=== PATIENT | female | born 1965 | race Two or more races ===

== ENCOUNTER 2021-05-12 08:59 | Inpatient (IN) | payer MEDICAID ==
[~2021-05-12] VITALS: Ht 167.6 cm; Wt 68.5 kg
[2021-05-12] MEDS ORDERED: MORPHINE SULFATE 4 MG/ML CPJ (NOT FOR IM USE) IV STA (09:08)
[2021-05-12 09:43] LABS: HEMATOCRIT. 37.7 % (36.0-48.0); HEMOGLOBIN. 12.2 g/dL (12.0-16.0); LYMPHOCYTES % 33.8 % (20.0-50.0); MEAN CORPUSCULAR HEMOGLOBIN 23.9 pg (28.0-32.0); MEAN CORPUSCULAR VOLUME 73.8 fL (81.0-99.0); MEAN PLATELET VOLUME 9.6 fl (7.4-10.4); MONOCYTES % 8.9 % (2.0-8.0); NEUTROPHILS % 51.3 % (40.0-76.0); PLATELET 132 x1000/uL (130-400); RED BLOOD CELL COUNT 5.11 mill/uL (4.2-5.4); RED CELL DISTRIBUTION WIDTH 26.8 % (11.6-14.6)
[2021-05-12 09:49] LABS: CHLORIDE 106 mEq/L (98-107)
[2021-05-12] MEDS ORDERED: HYDRALAZINE 20MG/ML VIAL IV ONE (10:15)
[2021-05-12 11:01] LABS: PLATELET ESTIMATE NORMAL
[2021-05-12 13:29] VITALS: BP 145/83
[2021-05-12 13:30] VITALS: BP 145/83
[2021-05-12] MEDS ORDERED: FURO20TA4 MT (13:49)
[2021-05-12] MEDS ORDERED: ASPI-1497 PO (13:50)
[2021-05-12] MEDS ORDERED: LOSA100T32 MT (13:50)
[2021-05-12] MEDS ORDERED: CARV25TA47 MT (13:50)
[2021-05-12] MEDS ORDERED: NIFE20CA PO (13:51)
[2021-05-12] MEDS ORDERED: CLON0.1T PO (13:52)
[2021-05-12] MEDS ORDERED: ACET650T37 PO (13:53)
[2021-05-12] MEDS ORDERED: IPRATROPIUM/ALBUTEROL 0.5-3(2.5)MG/3ML NEB HHN PRN (15:00)
[2021-05-12] MEDS ORDERED: LORAZEPAM 0.5MG TABLET PO PRN (15:00)
[2021-05-12] MEDS ORDERED: MORPHINE SULFATE 2 MG/ML CPJ (NOT FOR IM USE) IV PRN (15:00)
[2021-05-12] MEDS ORDERED: ACETAMINOPHEN 325MG TABLET PO PRN ×2 (15:00)
[2021-05-12] MEDS ORDERED: NITROGLYCERIN 0.4MG TABLET SL SL PRN (15:00)
[2021-05-12] MEDS ORDERED: ONDANSETRON HCL 4MG/2ML INJ IV PRN (15:00)
[2021-05-12] MEDS ORDERED: DOCUSATE SODIUM 100MG CAPSULE PO PRN (15:00)
[2021-05-12] MEDS ORDERED: HYDROCODONE/ACETAMINOPHEN 5/325MG TABLET PO PRN (15:00)
[2021-05-12 16:00] VITALS: BP 131/84
[2021-05-12] MEDS: CLONIDINE 0.1MG TABLET PO SCH (16:28)
[2021-05-12] MEDS: NIFEDIPINE XL 60MG TAB PO SCH (16:28)
[2021-05-12] MEDS: LORATADINE 10MG TABLET PO SCH (16:28)
[2021-05-12] MEDS: LOSARTAN POTASSIUM 100 MG TABLET PO SCH (16:29)
[2021-05-12] MEDS: ENOXAPARIN 40MG/0.4ML SYR SUBCUT SCH (16:29)
[2021-05-12 17:55] LABS: LDL CHOLESTEROL 121 mg/dL (5-100)
[2021-05-12 17:57] LABS: CREATINE KINASE 54 IU/L (26-192); HDL CHOLESTEROL 61 mg/dL (40-59)
[2021-05-12 18:00] LABS: CREATINE KINASE MB FRACTION 1.1 ng/mL (0.5-3.6)
[2021-05-12 20:00] VITALS: BP 139/74
[2021-05-12] MEDS: CARVEDILOL 12.5MG TABLET PO SCH (22:07)
[2021-05-13] VITALS: BP 128/70
[2021-05-13 00:07] LABS: *AMPHETAMINES SCREEN URINE NEGATIVE (NEGATIVE); *BARBITURATES SCREEN URINE NEGATIVE (NEGATIVE)
[2021-05-13 00:08] LABS: *BENZODIAZEPINES SCREEN URINE NEGATIVE (NEGATIVE); *COCAINE SCREEN URINE NEGATIVE (NEGATIVE); CANNABINOID URINE SCREEN NEGATIVE (NEGATIVE); METHADONE URINE SCREEN NEGATIVE (NEGATIVE); OPIATES URINE SCREEN PRESUMTIVE POSITIVE (NEGATIVE); PHENCYCLIDINE URINE SCREEN NEGATIVE (NEGATIVE)
[2021-05-13 04:00] VITALS: BP 109/60
[2021-05-13 06:35] LABS: BASOPHILS % 1.4 % (0.0-2.0); HEMATOCRIT. 35.7 % (36.0-48.0); HEMOGLOBIN. 11.3 g/dL (12.0-16.0); LYMPHOCYTES % 38.9 % (20.0-50.0); MEAN CORPUSCULAR HEMOGLOBIN 23.6 pg (28.0-32.0); MEAN CORPUSCULAR VOLUME 74.6 fL (81.0-99.0); MONOCYTES % 8.9 % (2.0-8.0); NEUTROPHILS % 45.8 % (40.0-76.0); RED BLOOD CELL COUNT 4.79 mill/uL (4.2-5.4); RED CELL DISTRIBUTION WIDTH 26.3 % (11.6-14.6)
[2021-05-13 06:57] LABS: CHLORIDE 105 mEq/L (98-107)
[2021-05-13 08:00] VITALS: BP 116/74
[2021-05-13 08:46] LABS: PLATELET 124 x1000/uL (130-400)
[2021-05-13] MEDS: CARVEDILOL 12.5MG TABLET PO SCH ×2 (09:00→21:04)
[2021-05-13] MEDS: NIFEDIPINE XL 60MG TAB PO SCH (09:00)
[2021-05-13] MEDS: FUROSEMIDE 20MG TABLET PO SCH (09:00)
[2021-05-13] MEDS: LORATADINE 10MG TABLET PO SCH (09:00)
[2021-05-13] MEDS: CLONIDINE 0.1MG TABLET PO SCH ×3 (09:00→16:22)
[2021-05-13] MEDS: ASPIRIN 81MG EC TABLET PO SCH (09:00)
[2021-05-13] MEDS: LOSARTAN POTASSIUM 100 MG TABLET PO SCH (09:00)
[2021-05-13] MEDS ORDERED: LIDOCAINE HCL 1% 20ML VIAL (Pyxis) INJ ONE (11:11)
[2021-05-13] MEDS ORDERED: IOHEXOL-300 100 ML BOTTLE ONE (11:15)
[2021-05-13 11:30] VITALS: BP 150/79
[2021-05-13] MEDS ORDERED: VERAPAMIL HCL 2.5 MG/1 ML 2ML VIAL IV ONE (11:37)
[2021-05-13] MEDS ORDERED: MIDAZOLAM HCL 2 MG/2 ML VIAL ONE ×2 (11:37→12:08)
[2021-05-13] MEDS ORDERED: FENTANYL CITRATE/PF 50MCG/ML 2ML VIAL ONE ×2 (11:37→12:08)
[2021-05-13] MEDS ORDERED: FENTANYL CITRATE/PF 50MCG/ML 5ML VIAL ONE (12:33)
[2021-05-13] MEDS ORDERED: MIDAZOLAM HCL 5 MG/5 ML VIAL ONE (12:33)
[2021-05-13] MEDS ORDERED: ATROPINE SULFATE 1MG/10ML SYR IV PRN (13:15)
[2021-05-13] MEDS ORDERED: ACETAMINOPHEN 325MG TABLET PO PRN (13:15)
[2021-05-13] MEDS: CLONIDINE 0.1MG TABLET PO PRN (15:03)
[2021-05-13] MEDS: ENOXAPARIN 40MG/0.4ML SYR SUBCUT SCH (15:31)
[2021-05-13 16:00] VITALS: BP 144/68
[2021-05-13 20:00] VITALS: BP 146/83
[2021-05-14] VITALS (7 sets, daily range): BP systolic 122–207; BP diastolic 65–114
[2021-05-14 06:44] LABS: BASOPHILS % 1.4 % (0.0-2.0); EOSINOPHILS % 3.6 % (0.0-5.0); HEMOGLOBIN. 10.5 g/dL (12.0-16.0); LYMPHOCYTES % 27.2 % (20.0-50.0); MEAN CORPUSCULAR HEMOGLOBIN 24.1 pg (28.0-32.0); MEAN CORPUSCULAR VOLUME 73.6 fL (81.0-99.0); MEAN PLATELET VOLUME 9.8 fl (7.4-10.4); MONOCYTES % 8.2 % (2.0-8.0); NEUTROPHILS % 59.6 % (40.0-76.0); PLATELET 98 x1000/uL (130-400); RED BLOOD CELL COUNT 4.34 mill/uL (4.2-5.4); RED CELL DISTRIBUTION WIDTH 26.3 % (11.6-14.6)
[2021-05-14 07:16] LABS: CHLORIDE 107 mEq/L (98-107)
[2021-05-14] MEDS: CLONIDINE 0.1MG TABLET PO PRN (07:29)
[2021-05-14] MEDS: FUROSEMIDE 20MG TABLET PO SCH (08:19)
[2021-05-14] MEDS: CLONIDINE 0.1MG TABLET PO SCH ×2 (08:19→12:33)
[2021-05-14] MEDS: LORATADINE 10MG TABLET PO SCH (08:19)
[2021-05-14] MEDS: NIFEDIPINE XL 60MG TAB PO SCH (08:22)
[2021-05-14] MEDS: CARVEDILOL 12.5MG TABLET PO SCH (08:22)
[2021-05-14] MEDS: ASPIRIN 81MG EC TABLET PO SCH (08:22)
[2021-05-14] MEDS: LOSARTAN POTASSIUM 100 MG TABLET PO SCH (08:22)
[2021-05-14] MEDS ORDERED: ISOSORBIDE MONONITRATE 30MG TABLET SR 24HR PO SCH (09:00)
[2021-05-14] MEDS ORDERED: ISOS30TA91 PO (10:45)
[2021-05-14] MEDS ORDERED: NITR0.4T49 SL (10:51)
[2021-05-14] MEDS ORDERED: CARVEDILOL 12.5MG TABLET PO SCH (21:00)
== END 2021-05-14 13:20 | disposition home or self-care (01) | DRG 191 ==
LOC: ER 08:59 → 5WST 10:04 → ENRESERV 12:49
PROVIDERS: ADMIT Internal Medicine; ATTEND Internal Medicine
PROC: 4A023N7 Measurement of Cardiac Sampling and Pressure, Left Heart, Percutaneous Approach (ICD-10-PCS; principal; 2021-05-13)
PROC: B211YZZ Fluoroscopy of Multiple Coronary Arteries using Other Contrast (ICD-10-PCS; 2021-05-13)
PROC: B31HYZZ Fluoroscopy of Right Upper Extremity Arteries using Other Contrast (ICD-10-PCS; 2021-05-13)
PROC: B41FYZZ Fluoroscopy of Right Lower Extremity Arteries using Other Contrast (ICD-10-PCS; 2021-05-13)
DX: I25.119 Atherosclerotic heart disease of native coronary artery with unspecified angina pectoris (principal); I50.33 Acute on chronic diastolic (congestive) heart failure; I07.1 Rheumatic tricuspid insufficiency; E87.1 Hypo-osmolality and hyponatremia; M94.0 Chondrocostal junction syndrome [Tietze]; I11.0 Hypertensive heart disease with heart failure; Z20.822 Contact with and (suspected) exposure to COVID-19; I77.1 Stricture of artery; I16.1 Hypertensive emergency; I77.89 Other specified disorders of arteries and arterioles; E78.5 Hyperlipidemia, unspecified; F17.210 Nicotine dependence, cigarettes, uncomplicated; Z98.891 History of uterine scar from previous surgery; Z79.899 Other long term (current) drug therapy; Z71.6 Tobacco abuse counseling
CPT/HCPCS: 36415; 71045; 80048; 80053; 80061; 80305; 82550; 82553; 83036; 83880; 84443; 84484; 85025; 85379; 87426; 93005; 93306; 93458; 99285; C1760; C1769; C1887; C1893; C1894; J0360; J1644; J1650; J2250; J2270; J3010; J3490; Q9967